=== PATIENT | male | born 1990 | race Two or more races ===

== ENCOUNTER 2018-07-06 11:08 | Emergency (ER) | payer OTHER ==
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
[2018-07-06 13:30] VITALS: BP 118/65
== END 2018-07-06 13:29 | disposition home or self-care (01) ==
DX: S00.03XA Contusion of scalp, initial encounter (principal); M54.6 Pain in thoracic spine; R68.84 Jaw pain; F10.99 Alcohol use, unspecified with unspecified alcohol-induced disorder; Y04.8XXA Assault by other bodily force, initial encounter